=== PATIENT | female | born 1995 | race American Indian/Alaskan Native ===

== ENCOUNTER 2016-10-23 23:51 | Emergency (ER) | payer SELFPAY | END 2016-10-24 00:35 | disposition left against medical advice (07) | LOC: ED 23:51 | DX: Z53.21 Procedure and treatment not carried out due to patient leaving prior to being seen by health care provider (principal) ==

== ENCOUNTER 2018-10-07 00:16 | Outpatient (CLI) | payer BC ==
[2018-10-07 03:16] VITALS: BP 111/64
[2018-10-07 03:20] LABS: Alanine Aminotransferase 18 units/L (7-56); Albumin 3.3 g/dL (3.9-5); BUN/Creatinine Ratio 12; Blood Urea Nitrogen 6 mg/dL (7-17); Hemolysis Index 8
[2018-10-07 03:32] LABS: Basophils # (Auto) 0.1 K/mm3 (0.0-0.1); Basophils % (Auto) 0.9 % (0.0-1.8); Eosinophils % (Auto) 0.4 % (0.0-4.3); Hematocrit 29.2 % (30.3-42.9); Hemoglobin 9.8 gm/dl (10.1-14.3); Lymphocytes # (Auto) 1.2 K/mm3 (1.2-5.4); Lymphocytes % (Auto) 14.5 % (13.4-35.0); Mean Corpuscular HGB Conc 33 % (30-34); Mean Corpuscular Volume 82 fl (79-97); Monocytes # (Auto) 0.6 K/mm3 (0.0-0.8); Monocytes % (Auto) 7.6 % (0.0-7.3); Platelet Count 193 K/mm3 (140-440); Red Blood Count 3.56 M/mm3 (3.65-5.03); Red Cell Distribution Width 14.1 % (13.2-15.2)
== END 2018-10-07 03:39 | disposition home or self-care (01) ==
LOC: TRG 00:16
PROVIDERS: ATTEND Obstetrics & Gynecology
DX: O47.02 False labor before 37 completed weeks of gestation, second trimester (principal); Z3A.27 27 weeks gestation of pregnancy
CPT/HCPCS: 36415; 59025; 80053; 85025

== ENCOUNTER 2018-11-30 21:48 | Inpatient (IN) | payer BC ==
[2018-11-30] MEDS: LACTATED RINGERS 1,000 ML IV SCH ×2 (22:40→23:08)
[2018-11-30 23:00] LABS: Basophils # (Auto) 0.1 K/mm3 (0.0-0.1); Eosinophils % (Auto) 0.7 % (0.0-4.3); Hematocrit 28.4 % (30.3-42.9); Hemoglobin 9.4 gm/dl (10.1-14.3); Lymphocytes % (Auto) 20.5 % (13.4-35.0); Mean Corpuscular HGB Conc 33 % (30-34); Mean Corpuscular Volume 74 fl (79-97); Monocytes # (Auto) 0.7 K/mm3 (0.0-0.8); Monocytes % (Auto) 12.9 % (0.0-7.3); Platelet Count 181 K/mm3 (140-440); Red Blood Count 3.86 M/mm3 (3.65-5.03); Red Cell Distribution Width 17.1 % (13.2-15.2)
[2018-11-30] MEDS ORDERED: ANCEF/STERILE WATER 2 GM/20 ML 2 GM/20 ML SYRINGE IV NR (23:00)
[2018-11-30] MEDS ORDERED: REGLAN IV ONE (23:00)
[2018-11-30] MEDS ORDERED: PEPCID IV ONE (23:00)
[2018-11-30] MEDS ORDERED: PITOCin/NS 20 UNIT/1000ML DRIP 20 UNITS/1,000 ML BAG IV SCH (23:00)
[2018-11-30] MEDS ORDERED: BICITRA PO ONE (23:00)
--- NOTE | 2018-11-30 23:10 | Ultrasound Report ---
Limited OB Ultrasound HISTORY: presentation-twins. Twin gestations here to assess for presentation TECHNIQUE: Grayscale and color Doppler imaging performed. COMPARISON: None FINDINGS: Twin A: Cephalic presentation with anterior placenta. Heart rate is 140 bpm. Largest vertical pocket of fluid is 3.2 cm. Twin B: Transverse presentation with left lateral placenta. Heart rate is 138 bpm. Largest vertical p ocket of fluid is 2.8 cm. IMPRESSION: Viable twin gestations as above on this limited OB ultrasound. Signer Name: Kyle Baker MD Signed: 11/30/2018 11:06 PM Workstation Name: [id number]
[2018-12-01] MEDS ORDERED: BICITRA ONE ×2 (01:39→02:08)
[2018-12-01] MEDS ORDERED: ZOFRAN ONE ×2 (02:14→06:16)
--- NOTE | 2018-12-01 03:56 | History and Physical Report ---
History of Present Illness Date of examination: 12/01/18 Date of admission: 11/30/18 21:48 Chief complaint: Twin gestation at 35 weeks and 4 days with SROM. History of present illness: Patient is a 23 year old, , LMP 04/03/18, EDC 01/01/19 at 35 weeks and 4 days with dichorionic/diamniotic twin gestation who presented to the triage complaining of having fluid leakage per vagina since around 9 PM. She denies any contractions or bleeding. She reports good movement for both babies. She sees [facility] and her last sonogram on 11/20/18 showed baby A to be vertex, EFW 5 lbs 8 oz and baby B to be breech, EFW 5 lbs 1 oz. tracing is CAT1 for both babies. Cervix is 3 cm/100%/-1 to 0. Bedside sonogram showed VTX/transverse lie. 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 Family/Genetic History: none Social history: no significant social history - Obstetrical History Expected Date of Delivery: 01/01/19 Actual Gestation: 35 Week(s) 4 Day(s) : 1 Medications and Allergies Allergies Allergy/AdvReac Type Severity Reaction Status Date / Time No Known Allergies Allergy Unverified 10/07/18 02:22 Active Meds: Active Medications Cefazolin Sodium (Ancef/Sterile Water 2 Gm/20 Ml) 2 gm in 20 mls @ 80 mls/hr IV PREOP NR; Protocol Stop: 12/01/18 09:54 Last Admin: 11/30/18 23:37 Dose: 80 mls/hr Documented by: Oxytocin/Sodium Chloride (Pitocin/Ns 20 Unit/1000ml Drip) 20 units in 1,000 mls @ 0 mls/hr IV TITR KEI Lactated Ringer's (Lactated Ringers) 1,000 mls @ 2,250 mls/hr IV PREOP KEI Stop: 12/01/18 23:27 Last Admin: 11/30/18 23:08 Dose: 2,250 mls/hr Documented by: - Vital Signs Vital signs: Vital Signs Pulse Pulse Ox 76 100 11/30/18 23:00 11/30/18 23:00 Temp Pulse Resp BP Pulse Ox 99.1 F 92 H 18 136/84 100 11/30/18 23:17 12/01/18 02:10 11/30/18 23:17 11/30/18 23:13 12/01/18 02:10 - Physical Exam Cardiovascular: Normal S1, Normal S2 Lungs: Positive: Clear to auscultation Vulva: both: normal Adnexa: both: normal Deep Tendon Reflex Grade: Normal +2 - Obstetrical FHR: category 1 Uterine Contraction Monitor Mode: External Cervical Dilatation: 3 Cervical Effacement Percentage: 100 station: -1 Uterine Contraction Pattern: Irregular Uterine Contraction Intensity: Mild Results Result Diagrams: 11/30/18 22:40 Abnormal lab results 11/30/18 Range/Units 22:40 Hgb 9.4 L (10.1-14.3) gm/dl Hct 28.4 L (30.3-42.9) % MCV 74 L (79-97) fl MCH 25 L (28-32) pg RDW 17.1 H (13.2-15.2) % [place] % (Auto) 12.9 H (0.0-7.3) % Lymph # 1.0 L (1.2-5.4) K/mm3 All other labs normal. Assessment and Plan - Patient Problems (1) Twin gestation in third trimester Current Visit: Yes Status: Acute (2) SROM (spontaneous rupture of membranes) Current Visit: Yes Status: Acute Plan to address problem: Admit to labor floor. Routine preop labs. IV hydration. Keep NPO. monitoring. Patient was counselled for primary C/section. Risks, benefits, and alternatives of the procedure were discussed in detail with the patient which included but not limited to the risk of infection, hemorrhage requiring blood transfusion, injury to the bowel or bladder and blood vessels. The patient expressed understanding, her questions were answered, and she gave informed consent. Anesthesia notified. (3) malpresentation Current Visit: Yes Status: Acute
[2018-12-01] MEDS ORDERED: TORADOL ONE (06:16)
[2018-12-01] MEDS ORDERED: NACL 0.9% IR ONE (06:50)
[2018-12-01] MEDS ORDERED: WATER FOR IRRIG STERILE IR ONE (06:50)
[2018-12-01] MEDS ORDERED: METHERGINE IM ONE (06:59)
--- NOTE | 2018-12-01 07:11 | Anesthesia Day of Surgery ---
Anesthesia Day of Surgery - Day of Surgery Patient Examined: Yes Patient H&P Reviewed: Yes Patient is NPO: Yes
[2018-12-01] MEDS ORDERED: NARCAN 0.4 MG/1 ML IV PRN ×2 (07:12→08:17)
[2018-12-01] MEDS ORDERED: ZOFRAN IV PRN ×2 (07:12→08:17)
[2018-12-01] MEDS ORDERED: PHENERGAN PO PRN (07:12)
[2018-12-01] MEDS ORDERED: DILAUDID IV PRN ×2 (07:12)
[2018-12-01] MEDS ORDERED: PHENERGAN PR PRN ×2 (07:12→08:17)
--- NOTE | 2018-12-01 07:12 | Anesthesia Consultation ---
Anesthesia Consult and Med Hx Date of service: 12/01/18 - Airway Anesthetic Teeth Evaluation: Good ROM Head & Neck: Adequate Mental/Hyoid Distance: Adequate Mallampati Class: Class II Intubation Access Assessment: Good - Pulmonary Exam CTA: Yes - Cardiac Exam Cardiac Exam: RRR - Pre-Operative Health Status ASA Pre-Surgery Classification: ASA2 Proposed Anesthetic Plan: Epidural, Spinal - Pulmonary Hx Asthma: No - Cardiovascular System Hx Hypertension: No - Central Nervous System Hx Seizures: No Hx Psychiatric Problems: No - Endocrine Hx Renal Disease: No Hx Hypothyroidism: No Hx Hyperthyroidism: No - Hematic Hx Anemia: Yes Hx Sickle Cell Disease: No - Other Systems Hx Alcohol Use: No
[2018-12-01] MEDS ORDERED: DECADRON ONE (07:23)
[2018-12-01] MEDS ORDERED: MORPHINE ONE (07:24)
[2018-12-01] MEDS ORDERED: SODIUM CHLORIDE FLUSH SYRINGE 10 ML IV NR ×2 (08:00→09:00)
[2018-12-01] MEDS ORDERED: MYLICON PO PRN (08:17)
[2018-12-01] MEDS ORDERED: TORADOL IV PRN (08:17)
[2018-12-01] MEDS ORDERED: LANSINOH TP PRN (08:17)
[2018-12-01] MEDS ORDERED: MORPHINE IV PRN ×2 (08:17)
[2018-12-01] MEDS ORDERED: TYLENOL PO PRN (08:17)
[2018-12-01] MEDS ORDERED: TUCKS PAD TP PRN (08:17)
--- NOTE | 2018-12-01 08:38 | Operative Report ---
Operative Report Operative Report: Preoperative diagnosis 1. Twin gestation at 35 weeks and 4 days gestation with PROM and early labor. 2. malpresentation. Postoperative diagnosis: Same. Procedure: Primary low-transverse section. Surgeon: Dr. Mitchell Regional Sales Associate: none Anesthesia: Spinal-epidural. IVF: RL 1000 cc. EBL: 500 cc Urine: 300 cc clear Complications: Intraoperative uterine atony responsive to IV Pitocin and IM methergine. Intraoperative findings: 1. Baby A was a female infant found in an GINNY position, delivered at 7:01 AM, Apgars 8 at 1 minute and 9 at 5 minutes, weight 5 lbs 13 oz. 2. Baby B was a female infant found in an footling breech presentation, delivered at 7:03 AM, Apgars 8 at 1 minute and 9 at 5 minutes, weight 4 lbs 13 oz. 3. Normal fallopian tubes and ovaries bilaterally. Procedure details: Risks, benefits, and alternatives of the procedure were discussed in detail with the patient which included but not limited to the risk of infection, hemorrhage requiring blood transfusion, injury to the bowel or bladder and blood vessels. The patient expressed understanding, her questions were answered, and she gave informed consent. The patient was taken to the operating room with an IV fluid infusing Ringers lactate. In the operating room, she was placed in a sitting position and given a combined spinal-epidural anesthesia. Then she was placed in a dorsal supine position with a leftward tilt. Cummings catheter in Venodyne boots were placed. The abdomen was washed and she was prepared and draped in usual sterile fashion. After confirming adequate anesthesia, a Pfannenstiel skin incision was made in the lower abdomen about 2 cm above the pubic symphysis using the scalpel. This incision was carried down to the underlying fascia using the Bovie. The fascia was opened bilaterally in a curvilinear fashion using the Bovie. 2 straight Kocker clamps were used to grasp the upper edge of the fascia from which the underlying rectus abdominis muscles was dissected off using the Bovie. A similar procedure was done with the lower edge of the fascia to dissect the underlying rectus abdominis muscle. The muscle was bluntly from the midline by pulling. The parietal peritoneum was grasped with 2 hemostat clamps and entered sharply using Metzenbaum scissors. A quick survey of the anatomy revealed a gravid uterus, normal fallopian tubes and ovaries bilaterally. A bladder flap was created. Kayode'O retractor was placed in the incision for proper visualization. A low transverse incision was made in the lower uterine segment using the scalpel and extended bilaterally in a curvilinear fashion using bandage scissors. Baby A's amniotic sac was ruptured and there was copious amount of clear amniotic fluid. The infant was found in an GINNY position, the head was delivered atraumatically followed by the delivery of the shoulders and the rest of the body at 7:01 AM. The cord was clamped 2 and cut and the was handed off to the waiting decker operator. The was a male, Apgars were 8 at 1 minute and 9 at 5 minutes, weight was 5 pounds 13 oz. Baby B's amniotic sac was ruptured and there was copious amount of clear amniotic fluid. The was found in a footling breech presentation. The infant was delivered from that position followed by the anterior shoulder, then the body was rotated to 180 degrees to bring the posterior shoulder to an anterior position, the head was delivered atraumatically at 7:03 AM. The cord was clamped 2 and cut and the infant was handed off to the waiting decker operator. The was a female, Apgars were 8 at 1 minute and 9 at 5 minutes, weight was 4 pounds 13 oz. Cord blood was collected for both babies. The placentae were delivered manually and they were complete with three-vessel cords. The uterine cavity was cleaned of clots and debris using dry lap sponges. The uterine incision was repaired in a running locked fashion using 0 Vicryl sutures. A second layer of imbrication was placed. The gutters were cleaned of clots and debris using dry lap sponges. After confirming adequate hemostasis, the instruments were removed from the abdominal cavity. The rectus muscle was reapproximated in an interrupted fashion using 0 Vicryl sutures. The fascia was closed in a running fashion using 0 Vicryl sutures. The subcutaneous adipose layer was closed with 2.0 chromic sutures. The skin was closed with dustin. Sterile dressing was placed. The counts of laps, needles, sponges, and instruments were correct 2. The patient tolerated the procedure well, she was taken to the recovery room in a stable condition.
[2018-12-01] MEDS ORDERED: PITOCin/NS 20 UNIT/1000ML DRIP 20 UNITS/1,000 ML BAG IV SCH (09:00)
[2018-12-01] MEDS: NORMODYNE PO SCH ×2 (09:50→21:52)
[2018-12-01] MEDS ORDERED: ANUCORT-HC PR PRN (10:00)
[2018-12-01] MEDS: TORADOL IV PRN ×2 (12:38→21:50)
[2018-12-01 13:34] LABS: Hematocrit 32.2 % (30.3-42.9); Hemoglobin 10.6 gm/dl (10.1-14.3); Mean Corpuscular HGB Conc 33 % (30-34); Mean Corpuscular Volume 75 fl (79-97); Platelet Count 178 K/mm3 (140-440); Red Blood Count 4.28 M/mm3 (3.65-5.03); Red Cell Distribution Width 17.5 % (13.2-15.2)
[2018-12-01 13:53] LABS: Alanine Aminotransferase 16 units/L (7-56); Uric Acid 2.9 mg/dL (3.5-7.6)
[2018-12-01] MEDS: LACTATED RINGERS 1,000 ML IV SCH (17:43)
[2018-12-01 19:06] LABS: Hematocrit 27.5 % (30.3-42.9)
--- NOTE | 2018-12-01 20:34 | Post Anesthesia Evaluation ---
- Post Anesthesia Evaluation Patient Participated: Yes Airway Patent: Yes Stable Respiratory Function: Yes Nausea/Vomiting: No Temp > 96.8F: Yes Pain Manageable: Yes Adequeate Hydration: Yes Anesthesia Complications: No Block Receding Appropriately: Yes Patient on Ventilator: No
[2018-12-01] MEDS ORDERED: SENOKOT PO PRN (22:00)
[2018-12-01] MEDS ORDERED: MILK OF MAGNESIA PO PRN (22:00)
[2018-12-02] MEDS: NORMODYNE PO SCH ×2 (10:15→21:30)
--- NOTE | 2018-12-02 18:13 | Progress Note ---
Assessment and Plan - Patient Problems (1) S/P primary low transverse Current Visit: Yes Status: Acute Plan to address problem: POD 1 - stable Continue routine postop orders Ambulation encouraged, as tolerated Abdominal binder ordered Anticipate discharge in 24-48 hours (2) Anemia due to blood loss, acute Current Visit: Yes Status: Acute Plan to address problem: Asymptomatic Continue iron therapy Subjective - Subjective Date of service: 12/02/18 Principal diagnosis: POD #1; s/p Primary LTCS, TIUP Interval history: See H&P and Operative Report Patient reports: appetite normal, voiding normally, pain well controlled, flatus, ambulating normally, no dizzy ambulation, no bowel movement : doing well, other (breast and bottle feeding) Objective - Vital Signs Latest vital signs: Vital Signs Temp Pulse Resp BP Pulse Ox 12/02/18 12:41 97.9 F 83 18 125/77 98 12/02/18 09:58 98.3 F 88 20 126/78 98 12/02/18 04:21 97.7 F 79 20 121/65 99 12/02/18 01:16 18 12/01/18 22:28 97.7 F 78 20 119/75 98 12/01/18 21:52 72 122/77 12/01/18 21:50 18 Intake and Output 12/02/18 12/02/18 12/02/18 07:59 15:59 23:59 Intake Total 240 Output Total 1200 Balance -960 Intake: Oral 240 Output: Urine 1200 Indwelling Catheter 1200 Other: Total, Intake Amount 240 Total, Output Amount 1200 - Exam Cardiovascular: Present: Regular rate Lungs: Present: Clear to auscultation, Normal air movement Abdomen: Present: normal appearance, soft Vulva: both: normal Uterus: Present: normal, firm, fundal height at umbilicus Extremities: Present: normal Incision: Present: normal, dry, intact, dressed Comments: small lochia - Labs Labs: Abnormal lab results 12/01/18 Range/Units 18:54 Hgb 9.0 L (10.1-14.3) gm/dl Hct 27.5 L (30.3-42.9) %
[2018-12-02] MEDS: FEOSOL PO SCH (18:59)
[2018-12-02] MEDS: PRENATAL VITAMIN PO SCH (18:59)
[2018-12-02] MEDS: IBUPROFEN PO PRN (21:29)
[2018-12-02] MEDS: PERCOCET 5/325 PO PRN (21:30)
[2018-12-03] MEDS: FEOSOL PO SCH (10:31)
[2018-12-03] MEDS: NORMODYNE PO SCH ×2 (10:32→21:46)
[2018-12-03] MEDS: PRENATAL VITAMIN PO SCH (10:32)
[2018-12-03] MEDS: PERCOCET 5/325 PO PRN ×2 (10:32→16:40)
[2018-12-03] MEDS: IBUPROFEN PO PRN ×2 (10:33→16:41)
--- NOTE | 2018-12-03 12:01 | Progress Note ---
Assessment and Plan 1) S/P primary low transverse Current Visit: Yes Status: Acute Plan to address problem: POD 2 - stable Continue routine postop orders Ambulation encouraged, as tolerated Anticipate discharge in 24-48 hours Positive CHlamydia in (C&T 06/17/18; Negative JACK 11/27/18) (2) Anemia due to blood loss, acute Current Visit: Yes Status: Acute Plan to address problem: Asymptomatic Continue iron therapy (3) Edema, bilateral lower extremities Current Visit: Yes Status: Acute Plan to address problem: Pasha Patele ordered Enc[employer]aged inc H20 Subjective - Subjective Date of service: 12/03/18 Principal diagnosis: POD #2; s/p Primary LTCS, TIUP Interval history: See H&P Patient reports: appetite normal, voiding normally, pain well controlled, flatus, ambulating normally, no bowel movement : doing well, nursing well Objective - Vital Signs Latest vital signs: Vital Signs Temp Pulse Resp BP BP Pulse Ox 12/03/18 10:33 20 12/03/18 10:32 20 12/03/18 08:32 98.7 F 74 16 144/79 97 12/03/18 00:00 98.7 F 64 16 101/74 12/02/18 21:30 79 147/85 12/02/18 17:18 98.1 F 91 H 18 128/81 98 12/02/18 12:41 97.9 F 83 18 125/77 98 Intake and Output 12/02/18 12/03/18 12/03/18 23:59 07:59 15:59 Intake Total 300 720 Balance 300 720 Intake: Oral 360 Intake, Free Water 300 360 Other: Total, Intake Amount 360 # Voids Indwelling Catheter 1 - Exam Breasts: Present: normal, Cardiovascular: Present: Regular rate, Normal S1, Normal S2, No murmurs Lungs: Present: Clear to auscultation, Normal air movement Abdomen: Present: normal appearance, soft, tenderness (as expected post-op), normal bowel sounds. Absent: distention Vulva: both: normal Uterus: Present: firm, fundal height at umbilicus Extremities: Present: edema (1-2+) Incision: Present: normal (LTI closed with dustin, CDI, no drainage), dry, intact
--- NOTE | 2018-12-03 12:06 | Discharge Summary ---
Providers - Providers Date of Admission: 11/30/18 21:48 Date of discharge: 12/04/18 Attending physician: JUDD ALONSO MD Primary care physician: CHANTEL BOWERS MD Hospitalization Delivery: Procedure: primary low transverse (Twins) Procedure details: See H&P and operative note Incision: normal (LTI closed with dustin, CDI, no drainage), dry, intact complications: none Discharge diagnosis: IUP at term delivered [place] baby: twins (fe/fe) Condition at discharge: Good Disposition: DC-01 TO HOME OR SELFCARE Plan - Discharge Medications Prescriptions: Ibuprofen [Motrin] 800 mg PO Q8HR PRN #30 tablet PRN Reason: Pain, Moderate (4-6) oxyCODONE /ACETAMINOPHEN [Percocet 5/325] 1 tab PO Q4HR #20 tab - Provider Discharge Summary Activity: routine, no sex for 6 weeks, no heavy lifting 4 weeks, no strenuous exercise Diet: routine Instructions: routine Additional instructions: [] Smoking cessation referral if applicable(refer to patient education folder for contact #) [] Refer to [facility]'s [facility] Booklet Call your doctor immediately for: * Fever > 100.5 * Heavy vaginal bleeding ( >1 pad per hour) * Severe persistent headache * Shortness of breath * Reddened, hot, painful area to leg or breast * Drainage or odor from incision. * Keep incision clean and dry at all times and follow doctor's instructions regarding bathing/showering - Follow up plan Follow up: CHANTEL BOWERS MD [Primary Care Provider] - 7 Days
[2018-12-04 09:28] VITALS: BP 123/69
== END 2018-12-04 10:40 | disposition home or self-care (01) | DRG 787 ==
LOC: APU 21:48 → OB 12-01 12:24
PROVIDERS: ADMIT Obstetrics & Gynecology; ATTEND Obstetrics & Gynecology
PROC: 10D00Z1 Extraction of Products of Conception, Low, Open Approach (ICD-10-PCS; principal; 2018-12-01)
DX: O32.8XX2 Maternal care for other malpresentation of fetus, fetus 2 (principal); D62 Acute posthemorrhagic anemia; O42.913 Preterm premature rupture of membranes, unspecified as to length of time between rupture and onset of labor, third trimester; O90.81 Anemia of the puerperium; Z37.2 Twins, both liveborn; Z3A.35 35 weeks gestation of pregnancy; O30.043 Twin pregnancy, dichorionic/diamniotic, third trimester; O62.2 Other uterine inertia
CPT/HCPCS: 36415; 76815; 82565; 83615; 84450; 84460; 84550; 85014; 85018; 85025; 85027; 86850; 86900; 86901; 88307; G0378; J0690; J1100; J1170; J1885; J2210; J2270; J2405; J2590; J2765; J7120